=== PATIENT | female | born 1995 | race Caucasian/White ===

== ENCOUNTER 2016-12-26 16:16 | Outpatient (CLI) | payer OTHER ==
[2013-01-21 21:32] VITALS: BP 126/82
--- NOTE | 2016-12-26 17:21 | Diagnostic Imaging Report ---
[id number] [facility].[address] [id number] Report Submission Date: Dec 26, 2016 4:53:07 PM CDT Patient Study Name: RAFAEL DURBIN Date: Dec 26, 2016 4:27:23 PM CDT Modality Type: CR Gender: F Description: LOWER EXTREMITY : 89 Institution: Physician: LOULOU GIRARD - [facility] Examination: Plain film foot History: Swelling Findings: 3 views of the foot demonstrates normal cortical margins. No fracture or dislocation. No soft tissue swelling. No joint effusion. Impression: No acute osseous process. Electronically signed on Dec 26, 2016 4:53:07 PM CDT by: Willy CARRENO
== END 2016-12-26 16:17 ==
LOC: RAD 16:16
PROVIDERS: ATTEND Family Medicine
DX: M79.671 Pain in right foot (principal)
CPT/HCPCS: 73630

== ENCOUNTER 2017-01-22 13:55 | Outpatient (CLI) | payer OTHER ==
[2013-01-21 21:32] VITALS: BP 126/82
== END 2017-01-22 13:56 ==
LOC: LABRHC 13:55
PROVIDERS: ATTEND Family Medicine
DX: Z12.4 Encounter for screening for malignant neoplasm of cervix (principal); Z11.3 Encounter for screening for infections with a predominantly sexual mode of transmission
CPT/HCPCS: 87491; 87591; 88148; G0143